=== PATIENT | male | born 1985 | race Caucasian/White ===

== ENCOUNTER 2017-08-07 12:29 | Emergency (ER) | payer SELFPAY ==
[~2017-08-07] VITALS: Ht 180.3 cm; Wt 81.6 kg
[2017-08-07 13:36] LABS: Basophils # (auto) 0.1 uL; Eosinophils # (auto) 0.1 uL; Lymphocytes # (auto) 2.6 uL; Mean Corpuscular Hemoglobin 32.8 pg (28.0-32.0); Mean Platelet Volume 7.2 fL (6.9-10.8); Nucleated Red Blood Cells % 0.1 %; Red Cell Distribution Width 14.3 % (11.8-14.3); White Blood Cell 8.5 10^3/uL (4.4-10.8)
[2017-08-07 13:38] LABS: Basophils % (auto) 0.9 % (0.0-2.0); Eosinophils % (auto) 1.4 % (0.0-7.0); Hematocrit 50.8 % (41.0-53.0); Hemoglobin 17.4 g/dL (13.5-17.5); Lymphocytes % (auto) 30.2 % (10.0-50.0); Mean Corpuscular Hgb Conc. 34.4 g/dL (32.0-36.0); Mean Corpuscular Volume 95.6 fL (80.0-100.0); Monocytes % (auto) 12.1 % (0.0-12.0); Neutrophils # (auto) 4.7 uL; Neutrophils % (auto) 55.4 % (37.0-80.0); Platelet Count (auto) 398 10^3/uL (140-450)
[2017-08-07 13:40] LABS: Urine Blood Negative /uL (Negative); Urine Color Yellow (Yellow); Urine Glucose Normal (Normal); Urine Ketone TRACE (Negative); Urine Mucus FEW (None Seen); Urine Nitrite Negative (Negative); Urine RBC <1 /hpf (0 - 3); Urine Squamous Epithelial Cell FEW /hpf (<5); Urine pH 5.5 (5.0-8.0)
[2017-08-07 14:06] LABS: Urine Bilirubin Negative (Negative)
[2017-08-07 15:08] LABS: Albumin 4.8 g/dL (3.4-5.0); Bilirubin, Total 2.5 mg/dL (0.2-1.0); Calcium 9.6 mg/dL (8.5-10.1); Potassium 3.6 mmol/L (3.5-5.1); Total Protein 9.3 g/dL (6.4-8.2)
[2017-08-07 15:31] LABS: Acetaminophen < 2.0 ug/mL (10-30); Salicylate < 1.7 mg/dL (2.8-20.0)
[2017-08-08 06:38] VITALS: BP 124/78
== END 2017-08-08 05:27 | disposition home or self-care (01) ==
LOC: ER 12:29
DX: R45.851 Suicidal ideations (principal)
CPT/HCPCS: 36415; 80053; 80307; 80329; 81001; 85025

== ENCOUNTER 2017-08-19 22:29 | Emergency (ER) | payer SELFPAY ==
[~2017-08-19] VITALS: Ht 182.9 cm; Wt 83.0 kg
[2017-08-19 22:31] VITALS: BP 141/92
== END 2017-08-20 | disposition left against medical advice (07) ==
LOC: ER 22:36
DX: M79.641 Pain in right hand (principal); Z53.21 Procedure and treatment not carried out due to patient leaving prior to being seen by health care provider